=== PATIENT | male | born 1940 | race Two or more races ===

== ENCOUNTER 2016-11-12 00:53 | Inpatient (IN) | payer MEDICARE, MEDICAID ==
[~2016-11-12] VITALS: Ht 170.2 cm; Wt 80.7 kg
[2016-11-12 05:55] VITALS: BP 149/84
--- NOTE | 2016-11-12 06:33 | NUR ---
RN NOTES: 05:55 RECEIVED PATIENT FROM [facility], ALERT , ORIENTED TO PLACE, TIME AND PERSON. PATIENT IS CONNECTED TO AIRCREWMAN, NORMAL SINUS TO SINUS TACHY WITH PVC's. PATIENT IS ON A STABLE CONDITION AT THIS TIME.NO DISTRESS NOTED. PATIENT ON 3 L NASAL CANULA. PATIENT'S VITAL SIGNS : BP: 149/84 MMHG. HR:98 BPM. RR:18 BREATHS/MIN TEMP: 98.5 ORAL. O2 SAT: 93%. WILL ENDORSE IT TO AM SHIFT NURSE TO CONTINUE THE CARE.
[2016-11-12 06:51] VITALS: BP 144/84
[2016-11-12 08:00] VITALS: BP 144/84
[2016-11-12] MEDS ORDERED: GLIP5TAB13 PO (08:51)
[2016-11-12] MEDS ORDERED: DONE10TA44 PO (08:51)
[2016-11-12] MEDS ORDERED: LISI10TA5 PO (08:51)
[2016-11-12] MEDS ORDERED: HYDR-548 PO (08:51)
[2016-11-12] MEDS ORDERED: Z GUARD REMEDY 2 OZ OINT TP PRN (10:00)
[2016-11-12] MEDS ORDERED: MAG HYDROX/AL HYDROX/SIMETH 30 ML UDC PO PRN (10:00)
[2016-11-12] MEDS ORDERED: ONDANSETRON HCL/PF 4 MG/2 ML VIAL IVP PRN (10:00)
[2016-11-12] MEDS: LISINOPRIL (10MG) 10 MG TABLET PO SCH (10:43)
[2016-11-12] MEDS: ACETAMINOPHEN 325 MG TABLET PO PRN ×2 (10:44→20:05)
[2016-11-12] MEDS ORDERED: IV NS 0.9% 1,000 ML IV PRN (11:00)
[2016-11-12] MEDS ORDERED: PIPERACILLIN /TAZOBACTAM 3.375 G in IV D5W 50 ML IV ONE (11:30)
[2016-11-12] MEDS ORDERED: PIPERACILLIN /TAZOBACTAM 3.375 G in IV D5W 50 ML IV SCH (12:00)
[2016-11-12] MEDS ORDERED: IV SET PRIMARY PUMP SET 1 EA INFUS.SET MC ONE (12:07)
[2016-11-12] MEDS ORDERED: IV NS 0.9% 250 ML IV ONE (12:08)
[2016-11-12] MEDS ORDERED: SECONDARY IV SET 1 EA INFUS.SET MC ONE (12:08)
[2016-11-12 16:00] VITALS: BP 140/73
[2016-11-12] MEDS: glipiZIDE 5 MG TABLET PO SCH (17:00)
--- NOTE | 2016-11-12 18:28 | NUR ---
MS RN NOTE PATIENT IS ALERT AND ORIENTED x4. TURKMEN SPEAKING ONLY. NO PAIN AT THIS TIME. NO SOB OR DISTRESS NOTED. ALL DUE MEDICATIONS GIVEN ORDERED. ALL NURSING CARE NEEDS ATTENDED TO. SAFETY MEASURES IMPLEMENTED. ENCOURAGED INCENTIVE SPIROMETER TO ENHANCE BREATHING. PATIENT DEMONSTRATION GIVEN BACK. NO SIGNIFICANT CHANGES. TO FOLLOW UP WITH PATIENT. WILL ENDORSE TO POWER DIGGER OPERATOR NURSE
--- NOTE | 2016-11-12 19:02 | NUR ---
MS RN NOTE PATIENT'S CD FROM [facility] IS WITH RADIOLOGY FOR RETRIEVAL OF CT SCANS, AND X-RAYS. WILL ENDORSE TO MEDICAL SOCIOLOGIST NURSE
--- NOTE | 2016-11-12 19:40 | NUR ---
RN OPENING NOTES RECEIVED REPORT FROM LISSA BYRD RN. FOUND Pt AWAKE, RESTING IN BED. FAMILY VISITING AT BEDSIDE. NO S/S OF ACUTE DISTRESS OR SEVERE SOB NOTED. Pt IS A/OX3, CROATIAN SPEAKING. C/O HEADACHE BUT NO OTHER PAIN AT THIS TIME. Pt REQUESTING TYLENOL. IV ACCESS ON R WRIST #18G, & LAC #20G. SAFETY MEASURES IN PLACE. BED LOW, LOCKED, HOB ELEVATED, SIDE RAILS UP, CALL LIGHT AND BEDSIDE TABLE WITHIN REACH. WILL CONTINUE TO MONITOR Pt THROUGHOUT THE NIGHT FOR SAFETY.
[2016-11-12 20:00] VITALS: BP 138/63
--- NOTE | 2016-11-12 20:00 | NUR ---
RN NOTES Pt's O2 SAT IS AT 90%. Pt ON 4L NC. INCREASED O2 TO 5L, Pt WAS SAT HIGHEST AT 92%, BUT WOULD GO BACK DOWN TO 90%, WITH SLIGHT DECREASE TO 88% WHEN REPOSITIONING IN BED. NO PRN BREATHING TREATMENTS FOUND IN Pt's eMAR. WILL NOTIFY SANITARY PLUMBER AND REQUEST IF Pt CAN RECEIVE PRN BREATHING TREATMENTS.
[2016-11-12] MEDS: DONEPEZIL 5 MG TABLET PO SCH (21:19)
[2016-11-12 21:30] LABS: ALBUMIN 2.7 g/dL (3.4-5.0); BILIRUBIN,TOTAL 0.6 mg/dL (0.2-1.0); CALCIUM, SERUM 8.9 mg/dL (8.5-10.1); CREATININE 0.7 mg/dL (0.6-1.3); POTASSIUM 4.4 mmol/L (3.5-5.1); TOTAL PROTEIN, SERUM 7.2 g/dL (6.4-8.2)
[2016-11-12 22:00] VITALS: BP 138/63
[2016-11-12] MEDS ORDERED: MAGNESIUM HYDROXIDE 30 ML UDC PO PRN (22:00)
[2016-11-12] MEDS: IPRATROPIUM NEB FS 0.5 MG/2.5 ML AMPUL.NEB NEB SCH (22:16)
[2016-11-12] MEDS: ALBUTEROL FS 2.5 MG/3 ML VIAL.NEB NEB SCH (22:16)
--- NOTE | 2016-11-13 07:00 | NUR ---
RN CLOSING NOTES NO SIGNIFICANT CHANGES DURING THE NIGHT. NO S/S OF ACUTE DISTRESS OR SOB NOTED. SAFETY MEASURES IN PLACE. ALL NEEDS MET AND ATTENDED TO. WILL ENDORSE TO DAYSHIFT RN FOR Pt's SHERRILL.
[2016-11-13 07:11] LABS: CALCIUM, SERUM 8.8 mg/dL (8.5-10.1); CREATININE 0.7 mg/dL (0.6-1.3); MAGNESIUM 1.8 mg/dL (1.8-2.4); PHOSPHORUS 2.8 mg/dL (2.5-4.9); POTASSIUM 4.1 mmol/L (3.5-5.1)
--- NOTE | 2016-11-13 07:20 | NUR ---
MS RN INITIAL NOTES REPORT RECEIVED AT THE BEDSIDE. PATIENT IS SLEEPING. NO SOB OR DISTRESS NOTED AT THIS TIME. PATIENT DOES NOT APPEAR TO BE IN PAIN. BED IN A LOW POSITION, CALL LIGHT WITHIN PATIENT REACH. WILL CONTINUE TO MONITOR.
[2016-11-13 07:25] LABS: EOSINOPHILS # (AUTO) 0.1 /CMM (0.0-0.7); EOSINOPHILS % (AUTO) 0.6 % (0.0-6.0); HEMATOCRIT 39 % (39-51); HEMOGLOBIN 13.1 g/dL (13.5-17.5); LYMPHOCYTES # (AUTO) 0.7 /CMM (0.8-4.8); MEAN CORPUSCULAR HEMOGLOBIN 33 PG (26.0-33.0); MEAN CORPUSCULAR HGB CONC 33 g/dl (31.0-36.0); MEAN CORPUSCULAR VOLUME 99 fL (80-96); MONOCYTES # (AUTO) 1.1 /CMM (0.1-1.30); MONOCYTES % (AUTO) 11.6 % (2.0-12.0); NEUTROPHILS # (AUTO) 7.3 /CMM (1.8-8.9); NEUTROPHILS % (AUTO) 79.8 % (43.0-81.0); PLATELET COUNT (AUTO) 310 /CMM (150-450); RDW COEFFICIENT OF VARIATION 12.2 (11.5-15.0); RED BLOOD CELL COUNT(AUTO) 3.98 MIL/uL (4.5-6.0); WHITE BLOOD COUNT (AUTO) 9.1 K/uL (4.3-11.0)
[2016-11-13 08:00] VITALS: BP 140/78
[2016-11-13] MEDS: FUROSEMIDE 40 MG/4 ML VIAL IV SCH (08:02)
[2016-11-13] MEDS: glipiZIDE 5 MG TABLET PO SCH ×2 (08:02→16:37)
[2016-11-13] MEDS: LISINOPRIL (10MG) 10 MG TABLET PO SCH (08:03)
[2016-11-13] MEDS: IPRATROPIUM NEB FS 0.5 MG/2.5 ML AMPUL.NEB NEB SCH ×4 (08:35→20:05)
[2016-11-13] MEDS: ALBUTEROL FS 2.5 MG/3 ML VIAL.NEB NEB SCH ×4 (08:36→20:05)
[2016-11-13] MEDS ORDERED: IV NS 0.9% 1,000 ML BAG IV SCH (09:00)
[2016-11-13 12:02] LABS: INR 1.11 (0.87-1.13); PROTHROMBIN TIME 11.9 SECS (9.5-12.7)
--- NOTE | 2016-11-13 14:23 | NUR ---
MS RN NOTES PATIENT RETURNED FROM POST THORACENTESIS. NO SOB OR DISTRESS NOTED. PATIENT DENIES COUGH OR PAIN. PLEURAL FLUID TAKEN TO LAB FOR STUDY. WILL CONTINUE TO MONITOR. PATIENT.
[2016-11-13 15:19] LABS: MONOCYTES,BODY FLUID 1 %; POLYNUCLEAR, BODY FLUID 77 % (0-25); TOTAL VOLUME,BODY FLUID 1500 mL; WBC, BODY FLUID 3370 /cu. mm. (0-200)
[2016-11-13 16:00] VITALS: BP 138/70
[2016-11-13] MEDS: ACETAMINOPHEN 325 MG TABLET PO PRN ×2 (16:37→22:41)
[2016-11-13 18:18] LABS: GLUCOSE,BODY FLUID 208 mg/dL; PROTEIN, BODY FLUID 5.1 G/DL
--- NOTE | 2016-11-13 19:21 | NUR ---
MS RN CLOSING NOTES NO SIGNIFICANT CHANGES IN PATIENT CONDITION, NO SOB OR DISTRESS NOTED AT THIS TIME. PATIENT DENIES PAIN. SP THORACENTESIS WITH 1500ML DRAINAGE. BED IN A LOW POSITION, CALL LIGHT WITHIN PATIENT REACH. WILL ENDORSE FOR SHERRILL.
--- NOTE | 2016-11-13 19:49 | NUR ---
RN OPENING NOTES RECEIVED REPORT FROM FLAKITO BYRD RN. FOUND Pt AWAKE, RESTING IN BED. FAMILY VISITING AT BEDSIDE. NO S/S OF ACUTE DISTRESS OR SEVERE SOB NOTED. Pt IS A/OX3, SOMALI SPEAKING. C/O HEADACHE, AND SLIGHT RT ARM PAIN WHEN RAISING THE ARM. Pt REQUESTING TYLENOL WHEN DUE, WHICH IS AROUND 2200. WILL ADMINISTER WHEN IT IS TIME. IV ACCESS ON R WRIST #18G & LAC #20G, SL. S/P R THORACENTESIS TODAY, 1500ML OUT. PENDING CYTOLOGY. SAFETY MEASURES IN PLACE. BED LOW, LOCKED, HOB ELEVATED, SIDE RAILS UP, CALL LIGHT AND BEDSIDE TABLE WITHIN REACH. WILL CONTINUE TO MONITOR Pt THROUGHOUT THE NIGHT FOR SAFETY.
[2016-11-13 20:00] VITALS: BP 109/65
[2016-11-13 22:00] VITALS: BP 109/65
[2016-11-13] MEDS: DONEPEZIL 5 MG TABLET PO SCH (22:41)
[2016-11-14 07:25] LABS: BASOPHILS % (AUTO) 0.1 % (0.0-2.0); EOSINOPHILS # (AUTO) 0.1 /CMM (0.0-0.7); EOSINOPHILS % (AUTO) 1.6 % (0.0-6.0); HEMATOCRIT 39 % (39-51); HEMOGLOBIN 13.3 g/dL (13.5-17.5); LYMPHOCYTES # (AUTO) 0.8 /CMM (0.8-4.8); LYMPHOCYTES % (AUTO) 8.9 % (20.0-44.0); MEAN CORPUSCULAR HEMOGLOBIN 34 PG (26.0-33.0); MEAN CORPUSCULAR HGB CONC 34 g/dl (31.0-36.0); MEAN CORPUSCULAR VOLUME 98 fL (80-96); MONOCYTES # (AUTO) 1.1 /CMM (0.1-1.30); MONOCYTES % (AUTO) 12.5 % (2.0-12.0); NEUTROPHILS # (AUTO) 6.7 /CMM (1.8-8.9); NEUTROPHILS % (AUTO) 76.9 % (43.0-81.0); PLATELET COUNT (AUTO) 343 /CMM (150-450); RDW COEFFICIENT OF VARIATION 12.3 (11.5-15.0); RED BLOOD CELL COUNT(AUTO) 3.95 MIL/uL (4.5-6.0); WHITE BLOOD COUNT (AUTO) 8.7 K/uL (4.3-11.0)
[2016-11-14 07:33] LABS: CREATININE 0.7 mg/dL (0.6-1.3); POTASSIUM 4.1 mmol/L (3.5-5.1)
[2016-11-14] MEDS: IPRATROPIUM NEB FS 0.5 MG/2.5 ML AMPUL.NEB NEB SCH ×4 (07:47→20:05)
[2016-11-14] MEDS: ALBUTEROL FS 2.5 MG/3 ML VIAL.NEB NEB SCH ×4 (07:47→20:05)
[2016-11-14 08:00] VITALS: BP 144/77
--- NOTE | 2016-11-14 08:44 | NUR ---
RN AM NOTES RECEIVED PATIENT SLEEPING IN BED, BUT EASILY AROUSABLE. NO COMPLAINTS OF PAIN, NO SOB OR DISTRESS. WILL CONTINUE TO MONITOR.
[2016-11-14] MEDS: glipiZIDE 5 MG TABLET PO SCH ×2 (09:47→16:39)
[2016-11-14] MEDS: LISINOPRIL (10MG) 10 MG TABLET PO SCH (09:48)
--- NOTE | 2016-11-14 10:00 | NUR ---
PATIENT CHANGED MIND, NO MORE NAUSEA PRESENT. NO VOMITING. WASTED MEDICATION AND CALLED PHARMACY.
[2016-11-14] MEDS: FUROSEMIDE 40 MG/4 ML VIAL IV SCH (12:09)
[2016-11-14 16:00] VITALS: BP 143/86
--- NOTE | 2016-11-14 19:00 | NUR ---
RN PM NOTES PATIENT IN BED RESTING COMFORTABLY WITH FAMILY AT BEDSIDE. ALERT AND ORIENTED X 4, WITH NO SIGNS/SYMPTOMS OF SOB, DISTRESS OR PAIN NOTED. WILL ENDORSE TO NEXT SHIFT.
[2016-11-14 20:00] VITALS: BP 162/67
[2016-11-14] MEDS: ACETAMINOPHEN 325 MG TABLET PO PRN (20:00)
--- NOTE | 2016-11-14 20:18 | NUR ---
RECEIVED PATIENT IN BED ALERT ORIENT X 3 CAYMAN ISLANDER SPEAKING ONLY COMPLAIN OF HEADACHE, TYLENOL 650 MG ADMINISTERED ORDERED FOR PAIN 1/5 VITAL SIGN STABLE WILL CONTINUES TO MONITOR THE PATIENT FOR SAFETY AND FALL.
[2016-11-14] MEDS: DONEPEZIL 5 MG TABLET PO SCH (21:50)
[2016-11-14] MEDS: ZOLPIDEM TARTRATE 5 MG TABLET PO PRN (21:51)
--- NOTE | 2016-11-15 07:25 | NUR ---
MS/RN AM NOTES RECEIVED PATIENT IN BED, AWAKE, ALERT, WITHOUT SOB, NO DISTRESS NOTED, ON OXYGEN 2 L/M TOLERATING WELL, NO ACUTE DISTRESS NOTED, DENIES CHEST PAIN. IV LINE LAC INTACT, PATENT.HOB ELEVATED 35 DEGREE, BED IN LOW POSITION, WITH 2SR UP FOR SAFETY. KEPT CLEAN DRY, COMFORTABLE, WITH CALL LIGHT WITHIN EASY REACH. WILL CONTINUE TO MONITOR ACCORDINGLY.
[2016-11-15 08:00] VITALS: BP 113/65
[2016-11-15] MEDS: ALBUTEROL FS 2.5 MG/3 ML VIAL.NEB NEB SCH ×4 (08:12→20:35)
[2016-11-15] MEDS: IPRATROPIUM NEB FS 0.5 MG/2.5 ML AMPUL.NEB NEB SCH ×4 (08:12→20:35)
[2016-11-15] MEDS: glipiZIDE 5 MG TABLET PO SCH ×2 (09:48→18:08)
[2016-11-15] MEDS: FUROSEMIDE 40 MG/4 ML VIAL IV SCH (09:48)
[2016-11-15] MEDS: LISINOPRIL (10MG) 10 MG TABLET PO SCH (09:49)
[2016-11-15] MEDS: HYDROCODONE/APAP 10/325MG 1 EA TABLET PO PRN (11:40)
[2016-11-15 13:08] LABS: RETICULOCYTE COUNT 2.2 % (0.6-2.5)
[2016-11-15 13:54] LABS: THYROID STIMULATING HORMONE 3.02 uIU/mL (0.358-3.74); URIC ACID 3.5 mg/dL (2.6-7.2)
[2016-11-15 16:00] VITALS: BP 115/69
--- NOTE | 2016-11-15 19:15 | NUR ---
MS/RN CLOSING NOTES PATIENT IS IN BED, RESTING COMFORTABLY NO CHANGES IN MENTAL STATUS. WITH GOOD APPETITE, KEPT CLEAN DRY, COMFORTABLE WITH CALL LIGHT WITHIN EASY REACH. ENDORSED TO THE BRIM FLEXER ACCORDINGLY FOR SHERRILL
[2016-11-15 20:00] VITALS: BP 117/58
[2016-11-15] MEDS: ACETAMINOPHEN 325 MG TABLET PO PRN (21:09)
[2016-11-15] MEDS: DONEPEZIL 5 MG TABLET PO SCH (21:09)
[2016-11-16] MEDS: HYDROCODONE/APAP 10/325MG 1 EA TABLET PO PRN (05:34)
[2016-11-16 06:52] LABS: BASOPHILS % (AUTO) 0.1 % (0.0-2.0); EOSINOPHILS # (AUTO) 0.4 /CMM (0.0-0.7); EOSINOPHILS % (AUTO) 5.4 % (0.0-6.0); HEMATOCRIT 39 % (39-51); LYMPHOCYTES # (AUTO) 0.8 /CMM (0.8-4.8); LYMPHOCYTES % (AUTO) 11.3 % (20.0-44.0); MEAN CORPUSCULAR HEMOGLOBIN 33 PG (26.0-33.0); MEAN CORPUSCULAR HGB CONC 34 g/dl (31.0-36.0); MEAN CORPUSCULAR VOLUME 98 fL (80-96); MONOCYTES # (AUTO) 0.9 /CMM (0.1-1.30); MONOCYTES % (AUTO) 12.7 % (2.0-12.0); NEUTROPHILS % (AUTO) 70.5 % (43.0-81.0); PLATELET COUNT (AUTO) 342 /CMM (150-450); RDW COEFFICIENT OF VARIATION 12.2 (11.5-15.0); RED BLOOD CELL COUNT(AUTO) 3.93 MIL/uL (4.5-6.0); WHITE BLOOD COUNT (AUTO) 7.1 K/uL (4.3-11.0)
--- NOTE | 2016-11-16 06:52 | NUR ---
pt had nosebleed last night noted on tissue paper, pt on nasal cannula 4 liters, but bleeding stopped. pt have slight temp 100.2 and given tylenol, still having headache and medicated with norco with good relief, no bm overnight, no acute distress, slept well.
[2016-11-16 07:05] LABS: CALCIUM, SERUM 8.9 mg/dL (8.5-10.1); CREATININE 0.7 mg/dL (0.6-1.3); MAGNESIUM 2.2 mg/dL (1.8-2.4); PHOSPHORUS 3.2 mg/dL (2.5-4.9); POTASSIUM 3.8 mmol/L (3.5-5.1)
--- NOTE | 2016-11-16 07:58 | NUR ---
RN INITAL NOTES RECEIVED PT AWAKE AND ORIENTED, DENIES PAIN. NO SOB NOTED. SAFETY ENSURED. RECEIVED WITH IVHL IN PLACE NO IVF INFUSING. ALL NEEDS ATTENDED. WILL MONITOR.
[2016-11-16 08:00] VITALS: BP 109/67
[2016-11-16] MEDS: LISINOPRIL (10MG) 10 MG TABLET PO SCH (09:25)
[2016-11-16] MEDS: FUROSEMIDE 40 MG/4 ML VIAL IV SCH (09:25)
[2016-11-16] MEDS: glipiZIDE 5 MG TABLET PO SCH ×2 (09:25→16:35)
[2016-11-16] MEDS: ALBUTEROL FS 2.5 MG/3 ML VIAL.NEB NEB SCH ×4 (09:28→20:22)
[2016-11-16] MEDS: IPRATROPIUM NEB FS 0.5 MG/2.5 ML AMPUL.NEB NEB SCH ×4 (09:28→20:22)
[2016-11-16] MEDS: ACETAMINOPHEN 325 MG TABLET PO PRN (15:10)
[2016-11-16 16:00] VITALS: BP 104/65
[2016-11-16] MEDS ORDERED: IOHEXOL-300 100 ML VIAL IV ONE (17:01)
[2016-11-16] MEDS ORDERED: IV NS 0.9% 250 ML IV ONE (17:01)
[2016-11-16] MEDS ORDERED: CT SWABBABLE VALVE TRANS SET 1 EA INFUS.SET MC ONE (17:01)
--- NOTE | 2016-11-16 17:43 | NUR ---
RN NOTES' CONSENT FOR CT OF ABDOMEN SIGNED BY PTS AND DAUGHTER; PROCEDURE EXPLAINED BY FIXER BOARDING ROOM QUE AT BS; VERBALIZED UNDERSTANDING. TRANSPORTED PT TO CT UNIT IN STABLE CONDITION WITH FAMILY AT BS
--- NOTE | 2016-11-16 19:01 | NUR ---
RN NOTES NO SIGNIFICANT CHANGE NOTED. MEDS GIVEN. NO C/O PAIN MADE AT THIS TIME. WILL ENDORSE TO NEXR SHIFT FOR CONTINUITY OF CARE IN STABLE CONDITION. 1700 DUE MED HELD; PT NPO FOR CT
--- NOTE | 2016-11-16 19:30 | NUR ---
MS/RN PATIENT AWAKE, ALERT, ORIENTED, COMFORTABLE, NO C/O PAIN, NO DISTRESS NOTED, CALL LIGHT IN REACH WILL MONITOR.
[2016-11-16 20:00] VITALS: BP 153/76
[2016-11-16] MEDS: DONEPEZIL 5 MG TABLET PO SCH (22:27)
[2016-11-16] MEDS: ZOLPIDEM TARTRATE 5 MG TABLET PO PRN (22:28)
--- NOTE | 2016-11-16 23:48 | NUR ---
MS/RN PATIENT IS SLEEPING AT THIS TIME, AROUSABLE, APPEAR COMFORTABLE, NO SIGNS OF DISTRESS NOTED, CALL LIGHT IN REACH. WILL CONTINUE TO MONITOR.
--- NOTE | 2016-11-17 06:54 | NUR ---
MS/RN AWAKE, COMFORTABLE, NO CHANGE IN CONDITION CONDITION. ALL NEEDS ATTENDED AT THIS TIME. WILL CONTINUE TO MONITOR.
--- NOTE | 2016-11-17 07:05 | NUR ---
MS RN INITIAL NOTES REPORT RECEIVED AT THE BEDSIDE. PATIENT IS RESTING COMFORTABLY IN BED. NO SOB OR DISTRESS NOTED AT THIS TIME. PATIENT DENIES PAIN. BED IN A LOW POSITION, CALL LIGHT WITHIN PATIENT REACH. WILL CONTINUE TO MONITOR.
[2016-11-17 08:00] VITALS: BP 125/62
[2016-11-17] MEDS: IPRATROPIUM NEB FS 0.5 MG/2.5 ML AMPUL.NEB NEB SCH ×4 (08:26→19:44)
[2016-11-17] MEDS: ALBUTEROL FS 2.5 MG/3 ML VIAL.NEB NEB SCH ×4 (08:26→19:44)
[2016-11-17] MEDS: glipiZIDE 5 MG TABLET PO SCH ×2 (09:03→17:17)
[2016-11-17] MEDS: LISINOPRIL (10MG) 10 MG TABLET PO SCH (09:03)
[2016-11-17] MEDS: FUROSEMIDE 40 MG/4 ML VIAL IV SCH (09:03)
[2016-11-17 09:19] LABS: BASOPHILS % (AUTO) 0.1 % (0.0-2.0); EOSINOPHILS # (AUTO) 0.3 /CMM (0.0-0.7); EOSINOPHILS % (AUTO) 4.1 % (0.0-6.0); HEMATOCRIT 39 % (39-51); HEMOGLOBIN 13.1 g/dL (13.5-17.5); LYMPHOCYTES # (AUTO) 0.9 /CMM (0.8-4.8); MEAN CORPUSCULAR HEMOGLOBIN 33 PG (26.0-33.0); MEAN CORPUSCULAR HGB CONC 34 g/dl (31.0-36.0); MEAN CORPUSCULAR VOLUME 99 fL (80-96); MONOCYTES # (AUTO) 0.9 /CMM (0.1-1.30); MONOCYTES % (AUTO) 12.3 % (2.0-12.0); NEUTROPHILS # (AUTO) 5.3 /CMM (1.8-8.9); NEUTROPHILS % (AUTO) 71.5 % (43.0-81.0); PLATELET COUNT (AUTO) 378 /CMM (150-450); RDW COEFFICIENT OF VARIATION 12.2 (11.5-15.0); RED BLOOD CELL COUNT(AUTO) 3.94 MIL/uL (4.5-6.0); WHITE BLOOD COUNT (AUTO) 7.4 K/uL (4.3-11.0)
[2016-11-17 10:01] LABS: CREATININE 0.8 mg/dL (0.6-1.3); MAGNESIUM 2.1 mg/dL (1.8-2.4); PHOSPHORUS 2.8 mg/dL (2.5-4.9); POTASSIUM 3.9 mmol/L (3.5-5.1)
[2016-11-17] MEDS: ACETAMINOPHEN 325 MG TABLET PO PRN ×2 (10:02→17:17)
[2016-11-17 16:00] VITALS: BP 97/55
--- NOTE | 2016-11-17 19:39 | NUR ---
MS RN CLOSING NOTES NO SIGNIFICANT CHANGES IN PATIENT CONDITION THROUGHOUT THE SHIFT. NO SOB OR DISTRESS NOTED AT THIS TIME. PATIENT DENIES PAIN. BED IN A LOW POSITION, CALL LIGHT WITHIN PATIENT REACH. ENDORSED FOR SHERRILL.
--- NOTE | 2016-11-17 19:40 | NUR ---
RN NOTE RECEIVED REPORT. PT AAOX4, NO C/O PAIN OR DISCOMFORT AT THIS TIME. NO SOB NOTED. IV INTACT AND PATENT S/L. FAMILY AT BEDSIDE. CALL LIGHT IN REACH, WILL CONT TO MONITOR.
[2016-11-17 20:00] VITALS: BP 103/56
[2016-11-17] MEDS: ZOLPIDEM TARTRATE 5 MG TABLET PO PRN (21:58)
[2016-11-17] MEDS: DONEPEZIL 5 MG TABLET PO SCH (21:59)
--- NOTE | 2016-11-18 06:56 | NUR ---
RN NOTE NO SIGNIFICANT CHANGES THIS SHIFT. PT SLEPT WELL AT NIGHT. NO C/O PAIN OR DISCOMFORT AT THIS TIME. IV INTACT AND PATENT. SAFETY AND COMFORT MEASURES RENDERED. CALL LIGHT IN REACH, WILL F/U WITH DAY SHIFT FOR SHERRILL.
--- NOTE | 2016-11-18 07:30 | NUR ---
RN OPEN NOTES PATIENT IS ALERT AND ORIENTED TO NAME, PLACE AND TIME. PATIENT IS IN BED. BED IN LOW POSITION, LOCKED AND 2 SIDE RAILS ARE UP. NO SIGNS AND SYMPTOMS OF DISTRESS. PAIN LEVEL 2/10. IV SITE IS POTENT AND INTACT. WILL CONTINUE TO MONITOR AND ASSES PATIENT CONDITION THROUGH OUT MY SHIFT
[2016-11-18 07:49] LABS: BASOPHILS % (AUTO) 0.2 % (0.0-2.0); EOSINOPHILS # (AUTO) 0.3 /CMM (0.0-0.7); EOSINOPHILS % (AUTO) 3.4 % (0.0-6.0); HEMATOCRIT 38 % (39-51); HEMOGLOBIN 12.8 g/dL (13.5-17.5); LYMPHOCYTES # (AUTO) 0.9 /CMM (0.8-4.8); LYMPHOCYTES % (AUTO) 12.4 % (20.0-44.0); MEAN CORPUSCULAR HEMOGLOBIN 33 PG (26.0-33.0); MEAN CORPUSCULAR HGB CONC 34 g/dl (31.0-36.0); MEAN CORPUSCULAR VOLUME 98 fL (80-96); MONOCYTES # (AUTO) 0.8 /CMM (0.1-1.30); MONOCYTES % (AUTO) 10.9 % (2.0-12.0); NEUTROPHILS # (AUTO) 5.5 /CMM (1.8-8.9); NEUTROPHILS % (AUTO) 73.1 % (43.0-81.0); PLATELET COUNT (AUTO) 372 /CMM (150-450); RDW COEFFICIENT OF VARIATION 12.1 (11.5-15.0); RED BLOOD CELL COUNT(AUTO) 3.86 MIL/uL (4.5-6.0); WHITE BLOOD COUNT (AUTO) 7.5 K/uL (4.3-11.0)
[2016-11-18] MEDS: IPRATROPIUM NEB FS 0.5 MG/2.5 ML AMPUL.NEB NEB SCH ×4 (07:50→20:19)
[2016-11-18] MEDS: ALBUTEROL FS 2.5 MG/3 ML VIAL.NEB NEB SCH ×4 (07:50→20:19)
[2016-11-18 07:58] LABS: CALCIUM, SERUM 9.1 mg/dL (8.5-10.1); CREATININE 0.7 mg/dL (0.6-1.3); MAGNESIUM 2.2 mg/dL (1.8-2.4); PHOSPHORUS 2.7 mg/dL (2.5-4.9); POTASSIUM 3.6 mmol/L (3.5-5.1)
[2016-11-18 08:00] VITALS: BP 122/61
[2016-11-18] MEDS ORDERED: ERGOCALCIFEROL (VITAMIN D 2) 50,000 UNIT CAPSULE PO SCH (09:00)
[2016-11-18] MEDS: glipiZIDE 5 MG TABLET PO SCH ×2 (09:16→16:46)
[2016-11-18] MEDS: FUROSEMIDE 40 MG/4 ML VIAL IV SCH (09:16)
[2016-11-18] MEDS: LISINOPRIL (10MG) 10 MG TABLET PO SCH (09:16)
[2016-11-18] MEDS: HYDROCODONE/APAP 10/325MG 1 EA TABLET PO PRN (15:00)
[2016-11-18 16:00] VITALS: BP 113/65
--- NOTE | 2016-11-18 19:30 | NUR ---
MS RN OPENING NOTES RECEIVED PATIENT IN BED A/OX4 WITH FAMILY MEMBERS AT BEDSIDE. PT ON 2LPM VIA NASAL CANNULA. O2 SAT AT 92%. CALL LIGHT WITHIN PT'S REACH. BED IN LOCKED, LOWEST POSITION, AND SIDE RAILS X2 UP. IV ON RIGHT WRIST #18 G S/L. IV IS INTACT AND PATENT. WILL CONTINUE TO MONITOR PT.
[2016-11-18 20:00] VITALS: BP 106/65
[2016-11-18 20:15] VITALS: BP 106/65
[2016-11-18] MEDS: DONEPEZIL 5 MG TABLET PO SCH (21:36)
[2016-11-19] MEDS: ACETAMINOPHEN 325 MG TABLET PO PRN ×2 (04:47→18:58)
--- NOTE | 2016-11-19 04:47 | NUR ---
MS RN NOTES: PATIENT COMPLAINED OF HEADACHE. PT RECEIVED TYLENOL 650MG PO.
[2016-11-19 06:49] LABS: BASOPHILS % (AUTO) 0.3 % (0.0-2.0); EOSINOPHILS # (AUTO) 0.3 /CMM (0.0-0.7); EOSINOPHILS % (AUTO) 4.3 % (0.0-6.0); HEMATOCRIT 36 % (39-51); HEMOGLOBIN 11.9 g/dL (13.5-17.5); LYMPHOCYTES % (AUTO) 13.6 % (20.0-44.0); MEAN CORPUSCULAR HEMOGLOBIN 33 PG (26.0-33.0); MEAN CORPUSCULAR HGB CONC 34 g/dl (31.0-36.0); MEAN CORPUSCULAR VOLUME 99 fL (80-96); MONOCYTES # (AUTO) 0.8 /CMM (0.1-1.30); MONOCYTES % (AUTO) 11.3 % (2.0-12.0); NEUTROPHILS # (AUTO) 5.1 /CMM (1.8-8.9); NEUTROPHILS % (AUTO) 70.5 % (43.0-81.0); PLATELET COUNT (AUTO) 421 /CMM (150-450); RDW COEFFICIENT OF VARIATION 11.9 (11.5-15.0); RED BLOOD CELL COUNT(AUTO) 3.59 MIL/uL (4.5-6.0); WHITE BLOOD COUNT (AUTO) 7.3 K/uL (4.3-11.0)
--- NOTE | 2016-11-19 06:52 | NUR ---
MS RN CLOSING NOTES: ALL NEEDS WERE ATTENDED. PT ON O2 2LPM. PT TOLERATED WELL.PT KEPT CLEAN, DRY, AND COMFORTABLE. PT'S R WRIST #18 G IV IS INTACT AND PATENT. CALL LIGHT WITHIN PT REACH. NO SIGNS OR SYMPTOMS OF DISTRESS. BREATHING EVEN AND UNLABORED. BED IN LOCKED, LOWEST POSITION, AND SIDE RAILS X2 UP. WILL ENDORSE TO DAY SHIFT NURSE.
[2016-11-19 07:10] LABS: CALCIUM, SERUM 8.8 mg/dL (8.5-10.1); CREATININE 0.7 mg/dL (0.6-1.3); MAGNESIUM 1.9 mg/dL (1.8-2.4); PHOSPHORUS 2.5 mg/dL (2.5-4.9); POTASSIUM 3.8 mmol/L (3.5-5.1)
--- NOTE | 2016-11-19 07:40 | NUR ---
RECEIVED PT. ALERT AND ORIENTED X4. NO COMPLAINTS OFFERED,ARMENIAN SPEAKING ONLY.
[2016-11-19 08:00] VITALS: BP 121/66
[2016-11-19] MEDS: FUROSEMIDE 40 MG/4 ML VIAL IV SCH (09:06)
[2016-11-19] MEDS: glipiZIDE 5 MG TABLET PO SCH ×2 (09:06→17:47)
[2016-11-19] MEDS: LISINOPRIL (10MG) 10 MG TABLET PO SCH (09:07)
[2016-11-19] MEDS: HYDROCODONE/APAP 10/325MG 1 EA TABLET PO PRN (10:55)
--- NOTE | 2016-11-19 11:00 | NUR ---
BACK IN RM.VS STABLE. PRESENT.INITIALLY POX 89% THEN PUT ON O2.O2 UP TO 95 % WITH OXYGEN.
[2016-11-19 11:42] LABS: AFP, TUMOR MARKER 2.6 ng/mL (0.0-8.3); CARCINOEMBRYONIC AG (CEA) 10.5 ng/mL (0.0-4.7)
[2016-11-19] MEDS: ALBUTEROL FS 2.5 MG/3 ML VIAL.NEB NEB SCH ×3 (11:44→19:44)
[2016-11-19] MEDS: IPRATROPIUM NEB FS 0.5 MG/2.5 ML AMPUL.NEB NEB SCH ×3 (11:44→19:44)
--- NOTE | 2016-11-19 12:30 | NUR ---
TEXTED DR. SULLIVAN WITH PT,S C/O PAIN.PT. GIVEN NORCO.PLEURAL FLUID TAKEN TO LAB.VS STABLE.
[2016-11-19 13:44] LABS: GLUCOSE,BODY FLUID 237 mg/dL; PROTEIN, BODY FLUID 5.2 G/DL
[2016-11-19 13:57] LABS: TOTAL VOLUME,BODY FLUID 1100 mL; WBC, BODY FLUID 2320 /cu. mm. (0-200)
[2016-11-19 13:59] LABS: POLYNUCLEAR, BODY FLUID 5 % (0-25)
[2016-11-19 14:03] LABS: APPEARANCE,SPUN,BODY FLUID CLEAR (CLEAR)
[2016-11-19 16:00] VITALS: BP 98/60
--- NOTE | 2016-11-19 19:00 | NUR ---
PT. NOW MEDICATED FOR HEADACHE.
--- NOTE | 2016-11-19 19:30 | NUR ---
MS RN INITIAL NOTE RECEIVED PT COMFORTABLY RESTING IN BED, ALERT AND ORIENTED X3, NO COMPLAINTS OF PAIN OR RESPIRATORY DISTRESS NOTED DURING PHYSICAL ASSESSMENT, PASHTO SPEAKING/ABLE TO VERBALIZE NEEDS EFFECTIVELY, CONTINENT USING URINAL, ABLE TO AMBULATE WITH ASSISTANCE, PT WILL REMAIN CLEAN/DRY AND COMFORTABLE, SAFETY MEASURES WILL BE MAINTAINED AT ALL TIMES, NEEDS WILL BE ANTICIPATED AND ATTENDED TO DURING HOURLY ROUNDS AND NEEDED.
[2016-11-19 20:00] VITALS: BP 98/65
[2016-11-19] MEDS: DONEPEZIL 5 MG TABLET PO SCH (21:32)
[2016-11-20] MEDS: ZOLPIDEM TARTRATE 5 MG TABLET PO PRN (00:51)
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
[2016-11-20] MEDS: IPRATROPIUM NEB FS 0.5 MG/2.5 ML AMPUL.NEB NEB SCH ×4 (07:18→19:30)
[2016-11-20] MEDS: ALBUTEROL FS 2.5 MG/3 ML VIAL.NEB NEB SCH ×4 (07:18→19:30)
[2016-11-20 08:00] VITALS: BP 107/65
--- NOTE | 2016-11-20 08:00 | NUR ---
MS RN NOTES RECEIVED PATIENT IN BED RESTING NO SOB OR ACUTE DISTRESS NOTED. MALTESE SPEAKING, ALERT, ORIENTED X3 . IV ON RIGHTY WRIST PATENT INTACT. CALL LIGHT WITHIN REACH. BED IN LOW LOCKED POSITION. WILL CONTINUE TO MONITOR.
[2016-11-20] MEDS: LISINOPRIL (10MG) 10 MG TABLET PO SCH (08:22)
[2016-11-20] MEDS: glipiZIDE 5 MG TABLET PO SCH ×2 (08:22→16:28)
[2016-11-20] MEDS: FUROSEMIDE 40 MG/4 ML VIAL IV SCH (08:22)
[2016-11-20] MEDS ORDERED: CT SWABBABLE VALVE TRANS SET 1 EA INFUS.SET MC ONE (12:02)
[2016-11-20] MEDS ORDERED: IV NS 0.9% 250 ML IV ONE (12:02)
[2016-11-20] MEDS ORDERED: IOHEXOL-300 100 ML VIAL IV ONE (12:02)
[2016-11-20 16:00] VITALS: BP_SYST 116; BP_SYST 123; BP_SYST 129; BP_DIAS 77; BP_DIAS 84; BP_DIAS 97
[2016-11-20] MEDS: ACETAMINOPHEN 325 MG TABLET PO PRN (16:28)
--- NOTE | 2016-11-20 19:25 | NUR ---
MS RN NOTES PATIENT IN BED RESTING NO SOB OR ACUTE DISTRESS NOTED. ALL DUE MEDICATIONS GIVEN. ALL NEEDS MET. CONSENT OBTAINED FOR CT GUIDED LIVER BIOPSY WITH TRANSLATION OF ITALIAN SPEAKING SN. IV INTACT PATENT ON RIGHT WRIST. ENDORSED CARE TO PM SHIFT.
--- NOTE | 2016-11-20 19:30 | NUR ---
MS RN INITIAL NOTE RECEIVED PT AWAKE AND ALERT ORIENTED X4, YORUBA SPEAKING WITH FAMILY AT BEDSIDE, NO PAIN OR RESPIRATORY DISTRESS NOTED, PT IS AWARE OF CT GUIDED LIVER BIOPSY SCHEDULE FOR TOMORROW, PT IS CLEAN/DRY AND COMFORTABLE, SAFETY MEASURES WILL BE MAINTAINED AT ALL TIMES, NEEDS WILL BE ANTICIPATED AND ATTENDED TO DURING HOURLY ROUNDS AND NEEDED.
[2016-11-20 20:00] VITALS: BP 110/63
[2016-11-20] MEDS: DONEPEZIL 5 MG TABLET PO SCH (22:07)
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
[2016-11-21 06:52] LABS: INR 1.11 (0.87-1.13)
[2016-11-21 06:55] LABS: CALCIUM, SERUM 8.9 mg/dL (8.5-10.1); CREATININE 0.6 mg/dL (0.6-1.3)
[2016-11-21] MEDS: ALBUTEROL FS 2.5 MG/3 ML VIAL.NEB NEB SCH ×4 (07:16→19:40)
[2016-11-21] MEDS: IPRATROPIUM NEB FS 0.5 MG/2.5 ML AMPUL.NEB NEB SCH ×4 (07:16→19:40)
[2016-11-21 08:00] VITALS: BP 118/83
--- NOTE | 2016-11-21 08:00 | NUR ---
PATIENT DANGLING AT BEDSIDE; NO ACUTE DISTRESS; DENIES ANY PAIN AT THIS TIME; WILL CONTINUETO MONITOR.
[2016-11-21] MEDS: FUROSEMIDE 40 MG/4 ML VIAL IV SCH (08:41)
[2016-11-21] MEDS: glipiZIDE 5 MG TABLET PO SCH ×2 (08:45→16:40)
[2016-11-21] MEDS: LISINOPRIL (10MG) 10 MG TABLET PO SCH (08:45)
[2016-11-21] MEDS ORDERED: NALOXONE PREFILLED SYRINGE 2 MG/2 ML SYRINGE IV ONE (09:00)
[2016-11-21] MEDS ORDERED: FENTANYL PF 250MCG/5ML AMPUL IV ONE (09:00)
[2016-11-21] MEDS ORDERED: MIDAZOLAM HCL 5MG/ML VIAL 25 MG/5 ML VIAL IV ONE (09:00)
--- NOTE | 2016-11-21 10:05 | NUR ---
PATIENT ALERT & ORIENTED; IN STABLE CONDITION; PATIENT TRANSFERRED TO RADIOLOGY DEPT VIA BED.
--- NOTE | 2016-11-21 11:25 | NUR ---
PT BACK FROM RADIOLOGY IN STABLE CONDITION, ALERT AND ORIENTED, NO PAIN NOTED, FAMILY AT BEDSIDE, WILL MONITOR.
[2016-11-21 12:30] VITALS: BP 115/75
[2016-11-21 13:00] VITALS: BP 120/78
[2016-11-21 16:00] VITALS: BP 131/72
--- NOTE | 2016-11-21 18:00 | NUR ---
LAYING IN BED; R POSTERIOR BACK DRSG CDI; DENIES ANY PAIN AT THIS TIME; WILL ENDORSE TO PM NURSE.
--- NOTE | 2016-11-21 19:24 | NUR ---
RN NOTE; RECEIVED PT IN BED AWAKE AND ALERT, BREATHING EVENLY, NO SOB. NO DISTRESS, SKIN WARM AND DRY. NO C/O PAIN OR DISCOMFORT. ON SUPPLEMENTAL O2 AT 2LPM CHAPIS WELL. SKIN WARM AND DRY. NEEDS ATTENDED, CALL LIGHT WITHIN REACH. WILL CONT TO MONITOR
[2016-11-21 20:00] VITALS: BP 120/69
[2016-11-21] MEDS: DONEPEZIL 5 MG TABLET PO SCH (21:42)
--- NOTE | 2016-11-22 06:40 | NUR ---
RN NOTE, PT IN BED AWAKE AND ALERT. BREATHING EVENLY. NO SOB. NAD. NO ACUTE CHANGES OVER THE NIGHT. DENIED ANY PAIN OR DISCOMFORT AT THIS TIME. ASSISTED W/ ADLS. NEEDS ATTENDED. BED LOW LOCKED . CALL LIGHT WITHIN REACH. WILL CONT TO MONITOR AND WILL ENDORSE TO AM SHIFT FOR SHERRILL.
[2016-11-22 06:56] LABS: BASOPHILS % (AUTO) 0.1 % (0.0-2.0); EOSINOPHILS # (AUTO) 0.1 /CMM (0.0-0.7); EOSINOPHILS % (AUTO) 1.7 % (0.0-6.0); HEMATOCRIT 38 % (39-51); HEMOGLOBIN 12.7 g/dL (13.5-17.5); LYMPHOCYTES % (AUTO) 12.5 % (20.0-44.0); MEAN CORPUSCULAR HEMOGLOBIN 33 PG (26.0-33.0); MEAN CORPUSCULAR HGB CONC 33 g/dl (31.0-36.0); MEAN CORPUSCULAR VOLUME 98 fL (80-96); MONOCYTES # (AUTO) 0.9 /CMM (0.1-1.30); MONOCYTES % (AUTO) 10.3 % (2.0-12.0); NEUTROPHILS # (AUTO) 6.3 /CMM (1.8-8.9); NEUTROPHILS % (AUTO) 75.4 % (43.0-81.0); PLATELET COUNT (AUTO) 551 /CMM (150-450); RDW COEFFICIENT OF VARIATION 12.4 (11.5-15.0); RED BLOOD CELL COUNT(AUTO) 3.88 MIL/uL (4.5-6.0); WHITE BLOOD COUNT (AUTO) 8.3 K/uL (4.3-11.0)
[2016-11-22 07:20] LABS: CREATININE 0.7 mg/dL (0.6-1.3); PHOSPHORUS 2.4 mg/dL (2.5-4.9)
--- NOTE | 2016-11-22 07:30 | NUR ---
MS RN AM NOTES PT IN BED, AAO X 4, LUXEMBOURGER SPEAKING, ON RA, NAD, NO SOB, DENIES ANY PAIN, RT WRIST G18 FLUSHES WELL, SITE CLEAR, DENIES ANY PAIN OR DISCOMFORT AT THIS TIME. AMBULATORY, ON CCHO. DISCUSSED POC. BED LOW LOCKED . CALL LIGHT WITHIN REACH. WILL CONT TO MONITOR.
[2016-11-22 08:00] VITALS: BP_SYST 121; BP_SYST 160; BP_DIAS 69; BP_DIAS 80
[2016-11-22] MEDS: IPRATROPIUM NEB FS 0.5 MG/2.5 ML AMPUL.NEB NEB SCH ×4 (08:25→20:31)
[2016-11-22] MEDS: ALBUTEROL FS 2.5 MG/3 ML VIAL.NEB NEB SCH ×4 (08:25→19:30)
[2016-11-22] MEDS: FUROSEMIDE 40 MG/4 ML VIAL IV SCH (09:00)
[2016-11-22] MEDS: glipiZIDE 5 MG TABLET PO SCH ×2 (09:00→17:21)
[2016-11-22] MEDS: LISINOPRIL (10MG) 10 MG TABLET PO SCH (09:00)
--- NOTE | 2016-11-22 09:30 | NUR ---
MS RN NOTES ADMINISTERED DUE MEDS.
[2016-11-22] MEDS ORDERED: Sodium Phosphate 15 MMOL in IV D5W 250 ML IV ONE (11:00)
[2016-11-22] MEDS ORDERED: IV SET PRIMARY PUMP SET 1 EA INFUS.SET MC ONE (12:02)
--- NOTE | 2016-11-22 12:11 | NUR ---
MS RN NOTES STARTED SOD PHOSPHATE IV.
[2016-11-22 16:00] VITALS: BP 104/59
[2016-11-22 18:00] VITALS: BP 104/59
--- NOTE | 2016-11-22 19:05 | NUR ---
MS RN CLOSING NOTES PT RESTING IN BED, AAO X 4, EMIRATI SPEAKING, ON RA, NAD, NO SOB, DENIES ANY PAIN, RT WRIST G18 FLUSHES WELL, SITE CLEAR, DENIES ANY PAIN OR DISCOMFORT AT THIS TIME. AMBULATORY, ON CCHO. BED LOW LOCKED . ALL NEEDS MET. NO OTHER SIGNIFICANT CHANGE IN CONDITION. CALL LIGHT WITHIN REACH. WILL ENDORSE TO NEXT SHIFT FOR SHERRILL.
--- NOTE | 2016-11-22 19:50 | NUR ---
MS RN NOTE: PATIENT RESTING IN BED, NO ACUTE DISTRESS NOTED, FAMILY AT BEDSIDE. BREATHING EVEN AND UNLABORED, NO SOB IN PLACE. IV TO LEFT AND RIGHT WRIST IN PLACE. BED LOCKED AND IN LOWEST POSITION, CALL LIGHT IN REACH. WILL CONTINUE TO MONITOR.
[2016-11-22] MEDS: ACETAMINOPHEN 325 MG TABLET PO PRN (19:57)
[2016-11-22 20:00] VITALS: BP 118/83
--- NOTE | 2016-11-22 20:00 | NUR ---
MS RN NOTE: PATIENT COMPLAINS OF A HEADACHE AND REQUESTING FOR TYLENOL. TYLENOL 650MG ORAL GIVEN PER MD ORDER. WILL CONTINUE TO MONITOR.
[2016-11-22] MEDS: DONEPEZIL 5 MG TABLET PO SCH (21:09)
--- NOTE | 2016-11-23 06:10 | NUR ---
MS RN NOTE: PATIENT RESTING IN BED, NO ACUTE DISTRESS NOTED. BREATHING EVEN AND UNLABORED, NO SOB IN PLACE. IV TO LEFT AND RIGHT WRIST IN PLACE. BED LOCKED AND IN LOWEST POSITION, CALL LIGHT IN REACH. WILL ENDORSE TO DAY NURSE TO CONTINUE WITH PLAN OF CARE.
[2016-11-23 06:55] LABS: BASOPHILS % (AUTO) 0.2 % (0.0-2.0); EOSINOPHILS # (AUTO) 0.3 /CMM (0.0-0.7); EOSINOPHILS % (AUTO) 3.3 % (0.0-6.0); HEMATOCRIT 37 % (39-51); HEMOGLOBIN 12.1 g/dL (13.5-17.5); LYMPHOCYTES # (AUTO) 1.3 /CMM (0.8-4.8); LYMPHOCYTES % (AUTO) 14.9 % (20.0-44.0); MEAN CORPUSCULAR HEMOGLOBIN 32 PG (26.0-33.0); MEAN CORPUSCULAR HGB CONC 33 g/dl (31.0-36.0); MEAN CORPUSCULAR VOLUME 98 fL (80-96); MONOCYTES # (AUTO) 0.9 /CMM (0.1-1.30); MONOCYTES % (AUTO) 10.8 % (2.0-12.0); NEUTROPHILS % (AUTO) 70.8 % (43.0-81.0); PLATELET COUNT (AUTO) 527 /CMM (150-450); RDW COEFFICIENT OF VARIATION 12.4 (11.5-15.0); RED BLOOD CELL COUNT(AUTO) 3.77 MIL/uL (4.5-6.0); WHITE BLOOD COUNT (AUTO) 8.5 K/uL (4.3-11.0)
[2016-11-23 07:30] LABS: CALCIUM, SERUM 9.1 mg/dL (8.5-10.1); CREATININE 0.6 mg/dL (0.6-1.3); PHOSPHORUS 2.8 mg/dL (2.5-4.9)
--- NOTE | 2016-11-23 07:30 | NUR ---
RECEIVED PT. ALERT AND ORIENTED X 3. NO COMPLAINTS OFFERED.VS STABLE.
[2016-11-23] MEDS ORDERED: ALBUT2 NEB (07:57)
[2016-11-23] MEDS ORDERED: Ipratropium Bromide NEB (07:57)
[2016-11-23] MEDS ORDERED: Ergocalciferol PO (07:57)
[2016-11-23 08:00] VITALS: BP 115/72
[2016-11-23] MEDS: IPRATROPIUM NEB FS 0.5 MG/2.5 ML AMPUL.NEB NEB SCH ×2 (08:01→11:49)
[2016-11-23] MEDS: ALBUTEROL FS 2.5 MG/3 ML VIAL.NEB NEB SCH ×2 (08:01→11:49)
[2016-11-23 09:00] VITALS: BP 115/72
[2016-11-23] MEDS: LISINOPRIL (10MG) 10 MG TABLET PO SCH (09:00)
[2016-11-23] MEDS: glipiZIDE 5 MG TABLET PO SCH (09:15)
[2016-11-23] MEDS: FUROSEMIDE 40 MG/4 ML VIAL IV SCH (09:15)
--- NOTE | 2016-11-23 11:00 | NUR ---
DR. NETTLES IN AND DC ORDER GIVEN.
[2016-11-23] MEDS ORDERED: PNEUMOCOCCAL 23-VAL P-SAC VAC 0.5 ML VIAL SQ ONE (12:00)
--- NOTE | 2016-11-23 13:15 | NUR ---
PT,S FAMILY GIVEN DC INSTRUCTIONS ALONG WITH ALL PAPERWORK. BELONGING SHEET SIGNED.HEP LOCKS OUT. GIVEN PNEUMONIA VACCINE. TAKEN TO LOBBY VIA W/C ACCOMPANIED BY AUTOMATION DRIVER AND FAMILY.AWRE TO FOLLOW UP WITH PRIVATE MD AND DR. NIELSEN.
== END 2016-11-23 13:25 | disposition home health service (06) | DRG 181 ==
LOC: TELE 05:46 → MED 09:20 → TELE 11-22 10:27 → MED 11-22 10:30
PROVIDERS: ADMIT Family Medicine; ATTEND Family Medicine
PROC: 0W993ZZ Drainage of Right Pleural Cavity, Percutaneous Approach (ICD-10-PCS; principal; 2016-11-13)
PROC: 0BBK3ZX Excision of Right Lung, Percutaneous Approach, Diagnostic (ICD-10-PCS; 2016-11-21)
DX: C34.91 Malignant neoplasm of unspecified part of right bronchus or lung (principal); E44.0 Moderate protein-calorie malnutrition; J91.0 Malignant pleural effusion; C78.7 Secondary malignant neoplasm of liver and intrahepatic bile duct; E22.2 Syndrome of inappropriate secretion of antidiuretic hormone; J98.11 Atelectasis; K82.9 Disease of gallbladder, unspecified; E11.9 Type 2 diabetes mellitus without complications; I10 Essential (primary) hypertension; F03.90 Unspecified dementia, unspecified severity, without behavioral disturbance, psychotic disturbance, mood disturbance, and anxiety; Z85.118 Personal history of other malignant neoplasm of bronchus and lung; Z87.891 Personal history of nicotine dependence; E55.9 Vitamin D deficiency, unspecified; D63.8 Anemia in other chronic diseases classified elsewhere; J43.9 Emphysema, unspecified; Z68.27 Body mass index [BMI] 27.0-27.9, adult
CPT/HCPCS: 36415; 47000; 71010-TC; 71260-TC; 74178; 76705-TC; 76942-TC; 77012-TC; 80048-TC; 80053-TC; 80061-TC; 82105; 82306; 82378; 82728-TC; 82746; 82962-TC; 83540-TC; 83615-TC; 83735-TC; 83880; 84100-TC; 84155-TC; 84443-TC; 84550-TC; 85025-TC; 85045-TC; 85610-TC; 85652-TC; 85730-TC; 86301; 87070-TC; 87075-TC; 87081-TC; 87102-TC; 88305-TC; 88307-TC; 88312-TC; 88342; 89051-TC; 90732; 94799-TC; 97001-TC; A6402; A9563; J1940; J2250; J2310; J2543; J3010; J7050; J7060; Q9967